=== PATIENT | female | born 1965 | race Caucasian/White ===

== ENCOUNTER 2017-04-19 09:53 | Outpatient (CLI) | payer OTHER | END 2017-04-19 09:58 | disposition home or self-care (01) | LOC: SONOGRAMA 09:53 | DX: E04.1 Nontoxic single thyroid nodule (principal) ==

== ENCOUNTER 2020-08-26 09:51 | Outpatient (CLI) | payer OTHER | END 2020-08-26 09:54 | disposition home or self-care (01) | LOC: SONOGRAMA 09:51 | PROVIDERS: ATTEND Pathology Anatomic Pathology & Clinical Pathology | DX: E04.1 Nontoxic single thyroid nodule (principal) ==